=== PATIENT | male | born 1985 | race Caucasian/White ===

== ENCOUNTER 2019-09-10 21:52 | Emergency (ER) | payer OTHER ==
[~2019-09-10] VITALS: Ht 175.3 cm; Wt 89.0 kg
[2019-09-10 21:55] VITALS: BP 115/74
--- NOTE | 2019-09-10 22:30 | RAD ---
ANKLE RIGHT 3V History: Ankle pain. Technique: 3 views right ankle. Comparison: None. Findings: Acute mildly displaced oblique right distal fibular fracture. Lateral ankle soft tissue swelling. Nondisplaced posterior malleolus fracture. Symmetric ankle mortise. Impression: 1. Acute oblique mildly displaced right distal fibular fracture. 2. Acute nondisplaced posterior malleolus fracture. Electronically signed by: Reese Hernandes DO (09/10/2019 10:27 PM) LESLIE
[2019-09-10] MEDS ORDERED: HYDR-3165 PO (22:54)
--- NOTE | 2019-09-10 22:55 | PHYS DOC ---
Past History Past Medical History: No Pertinent History Past Surgical History: Tonsillectomy, Other Additional Past Surgical Histo: mass removal right lung with chest tube Alcohol Use: Occasionally General Adult EDM: Chief Complaint: ANKLE PROBLEM HPI: HPI: 34-year-old male presents with right ankle pain. The patient was walking on what he believes was flat ground. As he was walking he heard a snap in his right ankle and had immediate pain. He is unable to bear weight on that ankle since that time. He denies falling. He does not remember rolling the ankle. He denies any other injuries. Review of Systems: Review of Systems: Constitutional: Denies fever or chills Eyes: Denies change in visual acuity HENT: Denies nasal congestion or sore throat Respiratory: Denies cough or shortness of breath Cardiovascular: Denies chest pain or edema GI: Denies abdominal pain, nausea, vomiting, bloody stools or diarrhea : Denies dysuria Musculoskeletal: Right ankle pain Integument: Denies rash Neurologic: Denies headache, focal weakness or sensory changes Endocrine: Denies polyuria or polydipsia Lymphatic: Denies swollen glands Psychiatric: Denies depression or anxiety Heart Score: Risk Factors: Risk Factors: DM, Current or recent (<one month) smoker, HTN, HLP, family history of CAD, obesity. Risk Scores: Score 0 - 3: 2.5% MACE over next 6 weeks - Discharge Home Score 4 - 6: 20.3% MACE over next 6 weeks - Admit for Clinical Observation Score 7 - 10: 72.7% MACE over next 6 weeks - Early Invasive Strategies Allergies: Allergies: Allergies Coded Allergies Type Severity Reaction Last Updated Verified oxycodone Allergy Intermediate 5/20/20 Yes Physical Exam: PE: Constitutional: Well developed, well nourished, no acute distress, non-toxic appearance. [] HENT: Normocephalic, atraumatic, bilateral external ears normal, oropharynx mo ist, no oral exudates, nose normal. [] Eyes: PERRLA, EOMI, conjunctiva normal, no discharge. [] Neck: Normal range of motion, no tenderness, supple, no stridor. [] Cardiovascular:Heart rate regular rhythm, no murmur [] Lungs & Thorax: Bilateral breath sounds clear to auscultation [] Abdomen: Bowel sounds normal, soft, no tenderness, no masses, no pulsatile masses. [] Skin: Warm, dry, no erythema, no rash. [] Back: No tenderness, no CVA tenderness. [] Extremities: Tenderness over the lateral and posterior right ankle, swelling, no ecchymosis or obvious deformity. [] Neurologic: Alert and oriented X 3, normal motor function, normal sensory function, no focal deficits noted. [] Psychologic: Affect normal, judgement normal, mood normal. [] Current Patient Data: Vital Signs: Vital Signs Date Time Temp Pulse Resp B/P (MAP) Pulse Ox O2 Delivery O2 Flow Rate FiO2 09/10/19 21:55 98.6 97 18 115/74 (88) 95 Room Air EKG: EKG: [] Radiology/Procedures: Radiology/Procedures: [] Impressions: ANKLE RIGHT 3V History: Ankle pain. Technique: 3 views right ankle. Comparison: None. Findings: Acute mildly displaced oblique right distal fibular fracture. Lateral ankle soft tissue swelling. Nondisplaced posterior malleolus fracture. Symmetric ankle mortise. Impression: 1. Acute oblique mildly displaced right distal fibular fracture. 2. Acute nondisplaced posterior malleolus fracture. Electronically signed by: Stas Starkey DO (09/10/2019 10:27 PM) [facility] DICTATED AND SIGNED BY: STAS STARKEY DO DATE: 09/10/192226 CC: CARLY SWANN DO; ANETA ALEXANDER DO ~ Course & Med Decision Making: Course & Med Decision Making Pertinent Labs and Imaging studies reviewed. (See chart for details) The patient has a bimalleolar fracture. See official read for more details. We will place the patient in a posterior Ortho-Glass splint. He will follow-up with orthopedics tomorrow. He is stable for discharge at this time. I will discharge him with a course of [place] . [] Dragon Disclaimer: Dragon Disclaimer: This electronic medical record was generated, in whole or in part, using a voice recognition dictation system. Departure Departure: Impression: Primary Impression: Bimalleolar fracture of right ankle Qualified Codes: S82.841A - Displaced bimalleolar fracture of right lower leg, initial encounter for closed fracture Disposition: 01 HOME/RESIDENCE PRIOR TO ADM Condition: STABLE Referrals: CARLY SWANN DO (PCP) Patient Instructions: Ankle Fracture, [id number] Scripts Hydrocodone Bit/Acetaminophen (NORCO 5-325 TABLET) 1 Each Tablet 1 TAB PO PRN Q6HRS PRN for PAIN, #14 TAB 0 Refills Prov: ANETA ALEXANDER DO 09/10/19 ANETA ALEXANDER DO September 10, 2019 22:55
[2019-09-10] MEDS ORDERED: HYDROcodone/APAP 7.5/325MG 1 TAB TABLET PO ONE (23:15)
== END 2019-09-10 23:25 | disposition home or self-care (01) ==
LOC: ER 21:52
DX: S82.841A Displaced bimalleolar fracture of right lower leg, initial encounter for closed fracture (principal); Z88.5 Allergy status to narcotic agent; X50.9XXA Other and unspecified overexertion or strenuous movements or postures, initial encounter; Y93.01 Activity, walking, marching and hiking; Y92.89 Other specified places as the place of occurrence of the external cause; Y99.8 Other external cause status
CPT/HCPCS: 29515; 73610; 99283

== ENCOUNTER → 2019-10-30 | Outpatient (CLI) | payer OTHER ==
[~2019-10-30] MED LIST: HYDR-3165 PO
--- NOTE | 2019-10-30 10:43 | RAD ---
EXAM: Right ankle 3 views. HISTORY: Fracture follow-up. COMPARISON: 09/10/2019 FINDINGS: Three views of the right ankle are obtained. There are changes of internal fixation of a right distal fibular fracture with a lateral plate fixed by screws and an interfragmentary screw. Alignment is near-anatomic. No the fracture line is less detectable consistent with early healing. Clear healing changes are yet detectable. There is mild overlying soft tissue swelling. The previously noted posterior malleolar fracture is not well seen in these projections. The joint spaces and alignment of the mortise are maintained. IMPRESSION: 1. Internal fixation of a right distal fibular fracture in expected alignment. 2. The previously noted posterior malleolar fracture is not well seen in these projections. Electronically signed by: Raghav Carrasco MD (10/30/2019 10:40 AM) [id number]
== END ==
LOC: DXRAD 10:03
PROVIDERS: ATTEND Orthopaedic Surgery
DX: S82.401D Unspecified fracture of shaft of right fibula, subsequent encounter for closed fracture with routine healing (principal); S82.201D Unspecified fracture of shaft of right tibia, subsequent encounter for closed fracture with routine healing; X58.XXXD Exposure to other specified factors, subsequent encounter; Z87.81 Personal history of (healed) traumatic fracture; Z98.890 Other specified postprocedural states
CPT/HCPCS: 73610

== ENCOUNTER → 2019-11-12 | Outpatient (CLI) | payer OTHER ==
--- NOTE | 2019-11-12 10:57 | RAD ---
EXAM: Right ankle 3 views. HISTORY: Fracture follow-up COMPARISON: 10/30/2019 FINDINGS: Three views of the right ankle are obtained. There are changes of internal fixation of a right distal fibular fracture with a lateral plate and screws and an interfragmentary screw. Alignment is near-anatomic. The fracture line is now indistinct, consistent with healing changes. A posterior malleolar fracture fragment also appears partially healed in expected alignment. A density projecting over the anterior joint space on the lateral projection measures 6 x 2 mm and may be an artifact or a loose body. The joint spaces and alignment of the mortise are maintained. IMPRESSION: 1. Healing internally fixed distal fibular fracture in expected alignment. 2. Healing posterior malleolar fracture in expected alignment. 3. 6 x 2 mm loose body within the anterior joint space versus an artifact. Electronically signed by: Raghav Carrasco MD (11/12/2019 10:54 AM) [id number]
== END ==
LOC: DXRAD 08:59
PROVIDERS: ATTEND Physician Assistant
DX: S82.491D Other fracture of shaft of right fibula, subsequent encounter for closed fracture with routine healing (principal); S82.891D Other fracture of right lower leg, subsequent encounter for closed fracture with routine healing; X58.XXXD Exposure to other specified factors, subsequent encounter; Z98.890 Other specified postprocedural states; Z87.81 Personal history of (healed) traumatic fracture
CPT/HCPCS: 73610

== ENCOUNTER 2021-04-21 11:08 | Emergency (ER) | payer OTHER ==
[~2021-04-21] VITALS: Ht 175.3 cm; Wt 89.0 kg
[2021-04-21 11:21] VITALS: BP 115/74
--- NOTE | 2021-04-21 11:32 | PHYS DOC ---
Past History Past Medical History: No Pertinent History Past Surgical History: Tonsillectomy, Other Additional Past Surgical Histo: mass removal right lung with chest tube Alcohol Use: Occasionally Adult General Chief Complaint Chief Complaint: BACK PAIN - NO INJURY HPI HPI Patient is a 36-year-old male patient presenting to the ED today with multiple complaints. Patient states on Sunday he developed mild intermittent low back pain as well as nasal congestion, sore throat and a cough. He states since last night when he coughs he has pain on his left lower ribs and now has body aches. Patient denies any injuries. Denies any pain radiating to bilateral lower extremities. Denies any loss of bowel/bladder function. Review of Systems Review of Systems Constitutional: Reports body aches denies fever or chills [] Eyes: Denies change in visual acuity, redness, or eye pain [] HENT: Reports nasal congestion and sore throat [] Respiratory: Denies cough or shortness of breath [] Cardiovascular: No additional information not addressed in HPI [] GI: Denies abdominal pain, nausea, vomiting, bloody stools or diarrhea [] : Denies dysuria or hematuria [] Musculoskeletal: Reports low back pain Integument: Denies rash or skin lesions [] Neurologic: Denies headache, focal weakness or sensory changes [] All other systems were reviewed and found to be within normal limits, except as documented in this note. Allergies Allergies Allergies Coded Allergies Type Severity Reaction Last Updated Verified oxycodone Allergy Intermediate 520/20 Yes Physical Exam Physical Exam Constitutional: Well developed, well nourished, no acute distress, non-toxic appearance. [] HENT: Normocephalic, atraumatic, bilateral external ears normal, oropharynx moist, no oral exudates, nose normal. [] Eyes: PERRLA, EOMI, conjunctiva normal, no discharge. [] Neck: Normal range of motion, no tenderness, supple, no stridor. [] Cardiovascular:Heart rate regular rhythm, no murmur [] Lungs & Thorax: Bilateral breath sounds clear to auscultation [] Abdomen: Bowel sounds normal, soft, no tenderness, no masses, no pulsatile masses. [] Skin: Warm, dry, no erythema, no rash. [] Back: No tenderness, no CVA tenderness. [] Extremities: No tenderness, no cyanosis, no clubbing, ROM intact, no edema. [] Neurologic: Alert and oriented X 3, normal motor function, normal sensory function, no focal deficits noted. [] Psychologic: Affect normal, judgement normal, mood normal. [] Current Patient Data Vital Signs Vital Signs Date Time Temp Pulse Resp B/P (MAP) Pulse Ox O2 Delivery O2 Flow Rate FiO2 04/21/21 11:21 98.2 88 16 115/74 (88) 99 Room Air EKG EKG [] Radiology/Procedures Radiology/Procedures []PROCEDURE: CHEST AP ONLY EXAM: Chest, single view. HISTORY: Cough. Rib pain. COMPARISON: None. FINDINGS: A frontal view of the chest is obtained. There is no infiltrate, pleural effusion or pneumothorax. The heart is normal in size. IMPRESSION: No acute pulmonary finding. Electronically signed by: Lydia Jon MD (04/21/2021 12:11 PM) [id number] DICTATED AND SIGNED BY: LYDIA JON MD DATE: 04/21/21 1211 CC: CARLY SWANN DO; [employer] ~MTH0 0 Heart Score C/O Chest Pain: N/A Risk Factors: Risk Factors: DM, Current or recent (<one month) smoker, HTN, HLP, family history of CAD, obesity. Risk Scores: Risk Factors: DM, Current or recent (<one month) smoker, HTN, HLP, family history of CAD, obesity. Course & Med Decision Making Course & Med Decision Making Pertinent Labs and Imaging studies reviewed. (See chart for details) This a 36-year-old male patient presented to the ED today with multiple complaints including low back pain, body aches, chills, nasal congestion, sore throat, and left rib pain when coughing, symptoms since Sunday. Negative influenza a and B. Chest x-ray interpreted by radiologist as negative for any acute findings. Positive rapid Covid test. Discharge to home. Quarantine measures recommended. Follow-up with primary care doctor in 1 week Álvaro Disclaimer Dragon Disclaimer This electronic medical record was generated, in whole or in part, using a voice recognition dictation system. Departure Departure: Impression: Primary Impression: Lab test positive for detection of COVID-19 virus Additional Impressions: URI (upper respiratory infection) Cough Backache Disposition: 01 HOME / SELF CARE / HOMELESS Condition: STABLE Referrals: CARLY SWANN DO (PCP) follow up with your doctor in one week Patient Instructions: Cough, Adult, [id number], Viral Infections Additional Instructions: You are positive for COVID-19. Please quarantine yourself for 10 days. Maintain good COVID19. Push fluids. Take Tylenol or Motrin for pain or fever c ome back to the ED at any point symptoms worsen. Problem Qualifiers Additional Impressions: URI (upper respiratory infection) URI type: unspecified URI Qualified Codes: J06.9 - Acute upper respiratory infection, unspecified Backache Back pain location: low back pain Chronicity: acute Back pain laterality: bilateral Sciatica presence: without sciatica Qualified Codes: M54.50 - Low back pain, unspecified [employer] Apr 21, 2021 11:32
[2021-04-21 12:10] LABS: INFLUENZA A PATIENT NEGATIVE (NEGATIVE); INFLUENZA B PATIENT NEGATIVE (NEGATIVE)
--- NOTE | 2021-04-21 12:13 | RAD ---
EXAM: Chest, single view. HISTORY: Cough. Rib pain. COMPARISON: None. FINDINGS: A frontal view of the chest is obtained. There is no infiltrate, pleural effusion or pneumo thorax. The heart is normal in size. IMPRESSION: No acute pulmonary finding. Electronically signed by: Lydia Jon MD (04/21/2021 12:11 PM) [id number]
== END 2021-04-21 12:33 | disposition home or self-care (01) ==
LOC: ER 11:08
DX: U07.1 COVID-19 (principal); J06.9 Acute upper respiratory infection, unspecified; Z88.5 Allergy status to narcotic agent
CPT/HCPCS: 71045; 87426; 87804; 99284

== ENCOUNTER 2021-06-08 15:01 | Emergency (ER) | payer OTHER ==
[~2021-06-08] VITALS: Ht 175.3 cm; Wt 93.0 kg
[2021-06-08 15:50] VITALS: BP 141/89
[2021-06-08 16:16] LABS: BASO % 1 % (0-3); EOS # 0.1 x10^3/uL (0.0-0.7); EOS % 1 % (0-3); HEMATOCRIT 46.5 % (39.0-53.0); HEMOGLOBIN 15.9 g/dL (13.0-17.5); LYMPH % 16 % (24-48); MEAN CORPUSCULAR HEMOGLOBIN 31 pg (25-35); MEAN CORPUSCULAR HGB CONC 34 g/dL (31-37); MEAN CORPUSCULAR VOLUME 91 fL (79-100); MONO # 0.8 x10^3/uL (0.0-1.1); MONO % 12 % (0-9); NEUT # 4.6 x10^3uL (1.8-7.7); NEUT % 70 % (31-73); PLATELET COUNT 252 x10^3/uL (140-400); RED BLOOD COUNT 5.09 x10^6/uL (4.30-5.70); RED CELL DISTRIBUTION WIDTH 13.6 % (11.5-14.5); WHITE BLOOD COUNT 6.6 x10^3/uL (4.0-11.0)
--- NOTE | 2021-06-08 16:16 | RAD ---
Single AP view of the chest. Comparison: 04/21/2021. Indication: Chest pain since Covid in late March Findings: The heart is not enlarged. There is no pneumothorax or effusion. No air space or interstitial diseas e. Impression: 1. No acute cardiopulmonary process. Electronically signed by: Edilson Cameron MD (06/08/2021 4:13 PM) [facility]
[2021-06-08 16:21] LABS: CALCIUM 8.9 mg/dL (8.5-10.1); CREATININE 1.1 mg/dL (0.7-1.3); GFR 75.7; POTASSIUM 4.3 mmol/L (3.5-5.1)
--- NOTE | 2021-06-08 16:21 | PHYS DOC ---
Past History Past Medical History: No Pertinent History Additional Past Medical Histor: neuropathy, chest masses Past Surgical History: Tonsillectomy, Other Additional Past Surgical Histo: mass removal right lung with chest tube, r ankle x3 Alcohol Use: Occasionally General Adult EDM: Chief Complaint: CHEST WALL PAIN HPI: HPI: 36-year-old male presents with chest wall pain. Patient states bilateral chest wall pain but worse on the right. He has had this pain since testing positive for COVID-19 in March. He states that the pain seems to be getting worse. Now disrupts his sleep. Movement of his trunk is painful. Deep breathing is painful. He tried to get an appointment at [facility] and they could not see him so he came to the emergency room. Patient does have shortness of breath with activity. Denies fever or chills. Review of Systems: Review of Systems: Constitutional: Denies fever or chills Eyes: Denies change in visual acuity HENT: Denies nasal congestion or sore throat Respiratory: shortness of breath Cardiovascular: Chest pain GI: Denies abdominal pain, nausea, vomiting, bloody stools or diarrhea : Denies dysuria Musculoskeletal: Denies back pain or joint pain Integument: Denies rash Neurologic: Denies headache, focal weakness or sensory changes Endocrine: Denies polyuria or polydipsia Lymphatic: Denies swollen glands Psychiatric: Denies depression or anxiety Allergies: Allergies: Allergies Coded Allergies Type Severity Reaction Last Updated Verified oxycodone Allergy Intermediate 520/20 Yes Physical Exam: PE: Constitutional: Well developed, well nourished, no acute distress, non-toxic appearance. [] HENT: Normocephalic, atraumatic, bilateral external ears normal, oropharynx moist, no oral exudates, nose normal. [] Eyes: PERRLA, EOMI, conjunctiva normal, no discharge. [] Neck: Normal range of motion, no tenderness, supple, no stridor. [] Cardiovascular: Heart rate 75, regular rhythm, no murmur [] Lungs & Thorax: Bilateral breath sounds clear to auscultation [] Abdomen: Bowel sounds normal, soft, no tenderness, no masses, no pulsatile masses. [] Skin: Warm, dry, no erythema, no rash. [] Back: No tenderness, no CVA tenderness. [] Extremities: No tenderness, no cyanosis, no clubbing, ROM intact, no edema. [] Neurologic: Alert and oriented X 3, normal motor function, normal sensory function, no focal deficits noted. [] Psychologic: Affect normal, judgement normal, mood normal. [] Current Patient Data: Vital Signs: Vital Signs Date Time Temp Pulse Resp B/P (MAP) Pulse Ox O2 Delivery O2 Flow Rate FiO2 06/08/21 15:50 97.9 71 18 141/89 (106) 99 Room Air EKG: EKG: Sinus rhythm, rate 75, normal axis, no ST elevation or depression. [] Radiology/Procedures: Radiology/Procedures: [] Impressions: Single AP view of the chest. Comparison: 04/21/2021. Indication: Chest pain since Covid in late March Findings: The heart is not enlarged. There is no pneumothorax or effusion. No air space or interstitial disease. Impression: 1. No acute cardiopulmonary process. Electronically signed by: Johny Atwood MD (06/08/2021 4:13 PM) [facility] DICTATED AND SIGNED BY: JOHNY ATWOOD MD DATE: 06/08/21 1611 CC: CARLY SWANN DO; ANETA ALEXANDER DO ~MTH0 0 Heart Score: C/O Chest Pain: Yes HEART Score for Chest Pain: HEART Score for Chest Pain Response (Comments) Value History Slighlty/Non-Suspicious 0 ECG Normal 0 Age < 45 0 Risk Factors 1 or 2 Risk Factors 1 Troponin < Normal Limit 0 Total 1 Risk Factors: Risk Factors: DM, Current or recent (<one month) smoker, HTN, HLP, family history of CAD, obesity. Risk Scores: Score 0 - 3: 2.5% MACE over next 6 weeks - Discharge Home Score 4 - 6: 20.3% MACE over next 6 weeks - Admit for Clinical Observation Score 7 - 10: 72.7% MACE over next 6 weeks - Early Invasive Strategies Course & Med Decision Making: Course & Med Decision Making Pertinent Labs and Imaging studies reviewed. (See chart for details) The patient is EKG is negative for acute findings. Labs are unremarkable. Troponin is negative. Chest x-ray is unremarkable. This could be long COVID symptoms or musculoskeletal cause. Dragon Disclaimer: Dragon Disclaimer: This electronic medical record was generated, in whole or in part, using a voice recognition dictation system. Departure Departure: Impression: Primary Impression: Chest wall pain Disposition: HOME / SELF CARE / HOMELESS Condition: STABLE Referrals: CARLY SWANN DO (PCP) Patient Instructions: Chest Wall Pain, [id number] ANETA ALEXANDER DO Jun 08, 2021 16:21
--- NOTE | 2021-06-08 16:26 | EKG ---
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
[2021-06-08 16:27] LABS: ALBUMIN 3.7 g/dL (3.4-5.0); ALBUMIN/GLOBULIN RATIO 1.1 (1.0-1.7); TOTAL BILIRUBIN 0.6 mg/dL (0.2-1.0); TOTAL PROTEIN 7.2 g/dL (6.4-8.2)
== END 2021-06-08 17:06 | disposition home or self-care (01) ==
LOC: ER 15:01
DX: R07.89 Other chest pain (principal); R06.02 Shortness of breath; Z88.5 Allergy status to narcotic agent
CPT/HCPCS: 36415; 71045; 80053; 84484; 85025; 93005; 99285

== ENCOUNTER 2021-08-12 20:13 | Emergency (ER) | payer OTHER ==
[~2021-08-12] VITALS: Ht 175.3 cm; Wt 82.3 kg
--- NOTE | 2021-08-12 20:40 | PHYS DOC ---
Past History Past Medical History: No Pertinent History Additional Past Medical Histor: neuropathy, chest masses Past Medical History COVID in Feb and Mar 2021 hx. spontaneous pneumothorax Rt Past Surgical History: Tonsillectomy, Other Additional Past Surgical Histo: mass removal right lung with chest tube, r ankle x3 Alcohol Use: Occasionally General Adult EDM: Chief Complaint: SHORTNESS OF BREATH HPI: HPI: ".. I ve been so short of breath.. coughing all the time... I had Covid in Feb. and Mar. ... I ve got some chest pain from all the coughing... " I got better but I am sick again the past week.." Patient is a 36 year old male who presents with above hx and complaints of chest wall pain, dyspnea . Chest wall pain on right is exacerbated by the frequent episodes of coughing. Patient did have COVID in February and March. Has not completely recovered to his baseline from the COVID infection. Patient did co mplete COVID vaccination. Has completed flu vaccination. No recent travel. No specific ill contacts. Normally healthy. Pt. normally follows at [facility] with Dr. Brown. No history of coagulopathy with him or family members. Review of Systems: Review of Systems: Constitutional: Subjective he complains of fever or chills Eyes: Denies change in visual acuity HENT: Denies nasal congestion or sore throat Respiratory: History of persistent cough, shortness of breath and chest wall pain Cardiovascular: Denies chest pain or edema GI: Denies abdominal pain, nausea, vomiting, bloody stools or diarrhea : Denies dysuria Musculoskeletal: Denies back pain or joint pain Integument: Denies rash Neurologic: Denies headache, focal weakness or sensory changes Endocrine: Denies polyuria or polydipsia Lymphatic: Denies swollen glands Psychiatric: Denies depression or anxiety Family History: Family History: Noncontributory to presentation Current Medications: Current Meds: See nursing for home meds Allergies: Allergies: Allergies Coded Allergies Type Severity Reaction Last Updated Verified oxycodone Allergy Intermediate 5/20/20 Yes Physical Exam: PE: Constitutional: Well developed, well nourished, moderate acute distress, non- toxic appearance. [] HENT: Normocephalic, atraumatic, bilateral external ears normal, oropharynx moist, no oral exudates, nose rhinorrhea swollen turbinates. Eyes: PERRLA, EOMI, conjunctiva normal, no discharge. [] Neck: Normal range of motion, no tenderness, supple, no stridor. [] Cardiovascular:Heart rate regular rhythm, no murmur [] Lungs & Thorax: Bilateral breath sounds equal apex with scattered wheezes, some rhonchi over right chest on auscultation [] has chest wall tenderness to deep breaths and cough. Has persistent coughing exacerbations. Abdomen: Bowel sounds normal, soft, no tenderness, no masses, no pulsatile masses. [] Skin: Warm, dry, no erythema, no rash. [] Back: No tenderness, no CVA tenderness. [] Extremities: No tenderness, no cyanosis, no clubbing, ROM intact, no edema. No cording appreciated. Neurologic: Alert and oriented X 3, normal motor function, normal sensory function, no focal deficits noted. [] Psychologic: Affect normal, judgement normal, mood normal. [] EKG: EKG: My interpretation of EKG shows a sinus rhythm at 76 bpm. There is some contour abnormalities in anterior lateral leads. But no findings of acute STEMI of contralateral changes. Time EKG is 2101 hrs. [] Radiology/Procedures: Radiology/Procedures: ([address] [id number] IMAGING REPORT Signed PAT[facility]: [facility] [id number] : 1985 LOCATION: ER AGE: 36 SEX: M EXAM STATUS: REG ER ORD. PHYSICIAN: DAVID BARRY MD REASON: chest pain PROCEDURE: CHEST AP ONLY INDICATION: Reason: chest pain / Spl. Instructions: / History: COMPARISON: June 08, 2021 FINDINGS: Single view of chest obtained. Hypoexpanded exam with mild interstitial and groundglass opacity. Cardiac silhouette unremarkable Nodularity at the pulmonary lavern bilaterally again seen and could be vessel seen on end or from causes such as chronic granulomatous disease IMPRESSION: * Mild interstitial and groundglass opacity. Could be secondary to mild pulmonary vascular congestion or interstitial infiltrate. Electronically signed by: Mary Rodriguez MD (08/12/2021 10:08 PM) [employer]- [id number] DICTATED AND SIGNED BY: MARY RODRIGUEZ MD DATE: 08/12/212206 CC: CARLY BROWN DO; DAVID BARRY MD ~ 549) [phone] IMAGING REPORT Signed PATIENT: YAMILETH GALLARDOOUNT: [id number] : 1985 LOCATION: ER AGE: 36 SEX: M EXAM STATUS: REG ER ORD. PHYSICIAN: DAVID BARRY MD REASON: OMNI 350,100ML IV.PLEURITIC CP.HX RIGHT LUNG PNEUMOTHORAX PROCEDURE: CT ANGIOGRAPHY CHEST EXAMINATION: CTA Chest With IV contrast INDICATION:36 years, Male, pleuritic chest pain, history of right pneumothorax. Evaluate for pulmonary embolism COMPARISON: None. TECHNIQUE: Spiral CTA was obtained from the jugular notch through the posterior costophrenic recess. 3-D MIPS, sagittal and coronal reformats were obtained. Exposure: One or more of the following individualized dose reduction techniques were utilized for this examination: 1. Automated exposure control 2. Adjustment of the mA and/or kV according to patient size 3. Use of iterative reconstruction technique. FINDINGS: LUNGS/PLEURA: Central airways are patent. Dependent subsegmental atelectasis in bibasilar lungs. No focal consolidation, pleural effusion or pneumothorax. Few scattered bilateral 2-3 mm solid pulmonary nodules, for example may nodules in the left lower lobe series 4 image 89. Scattered calcified granulomas in the ri ght lung. MEDIASTINUM: No pathologic mediastinal or hilar adenopathy. Calcified bilateral hilar lymph nodes. The thoracic aorta and pulmonary arteries are normal in caliber. No evidence of pulmonary embolism. The heart is normal in size. No pericardial effusion. No detectable calcified coronary atherosclerosis. The visualized thyroid and the esophagus are unremarkable. AXILLA/SOFT TISSUE: No supraclavicular or axillary adenopathy. Regional soft tissues are within normal limits. UPPER ABDOMEN: The visualized upper abdomen appears unremarkable. BONES: No evidence of acute fractures or aggressive osseous lesions. IMPRESSION: 1. No evidence of pulmonary embolism. 2. No pneumothorax. 3. Few scattered bilateral 2-3 mm solid pulmonary nodules. Fleischner Society guidelines for management of incidental pulmonary nodule (Radiology 2017): Multiple solid nodules < 6 mm: LOW-RISK patient (minimal or absent history of smoking and other known risk factors): No routine follow-up HIGH-RISK patient (history of smoking or other known risk factors): Optional CT at 12 months. Electronically signed by: Andrei Young MD (08/12/2021 10:56 PM) [facility] DICTATED AND SIGNED BY: ANDREI YOUNG MD DATE: 08/12/212250 CC: CARLY [facility] DO; DAVID BARRY MD ~ My interpretation [] Heart Score: C/O Chest Pain: Yes HEART Score for Chest Pain: HEART Score for Chest Pain Response (Comments) Value History Slighlty/Non-Suspicious 0 ECG Normal 0 Age < 45 0 Risk Factors No Risk Factors 0 Troponin < Normal Limit 0 Total 0 Risk Factors: Risk Factors: DM, Current or recent (<one month) smoker, HTN, HLP, family history of CAD, obesity. Risk Scores: Score 0 - 3: 2.5% MACE over next 6 weeks - Discharge Home Score 4 - 6: 20.3% MACE over next 6 weeks - Admit for Clinical Observation Score 7 - 10: 72.7% MACE over next 6 weeks - Early Invasive Strategies Course & Med Decision Making: Course & Med Decision Making Pertinent Labs and Imaging studies reviewed. (See chart for details) Patient continue MDI 2 puffs 4 times a day. Follow-up primary care. Take Tylenol and ibuprofen for discomfort. For severe cough you may try Benadryl 25 to 50 mg 4 times a day. Pt. to self isolate until asymptomatic. Follow at [facility]. Impression: 1. Chest Wall Pain 2. Viral Syndrome 3. + Influenza A. 4. Scattered Pulmonary nodule [] Dragon Disclaimer: Álvaro Disclaimer: This electronic medical record was generated, in whole or in part, using a voice recognition dictation system. Departure Departure: Referrals: CARLY BROWN DO (PCP) Asifon Disclaimer This chart was dictated in whole or in part using Voice Recognition software in a busy, high-work load, and often noisy Emergency Department environment. It may contain unintended and wholly unrecognized errors or omissions. DAVID BARRY MD Aug 12, 2021 20:40
[2021-08-12] MEDS: IV RINGERS SOLUTION,LACTATED 1,000 ML IV SCH (21:30)
[2021-08-12 21:46] LABS: BASO % 1 % (0-3); EOS % 0 % (0-3); HEMOGLOBIN 15.9 g/dL (13.0-17.5); LYMPH # 1.1 x10^3/uL (1.0-4.8); LYMPH % 18 % (24-48); MEAN CORPUSCULAR HEMOGLOBIN 31 pg (25-35); MEAN CORPUSCULAR HGB CONC 34 g/dL (31-37); MEAN CORPUSCULAR VOLUME 92 fL (79-100); MONO # 0.7 x10^3/uL (0.0-1.1); MONO % 12 % (0-9); NEUT # 4.5 x10^3uL (1.8-7.7); NEUT % 70 % (31-73); PLATELET COUNT 248 x10^3/uL (140-400); RED BLOOD COUNT 5.13 x10^6/uL (4.30-5.70); RED CELL DISTRIBUTION WIDTH 13.3 % (11.5-14.5); WHITE BLOOD COUNT 6.4 x10^3/uL (4.0-11.0)
[2021-08-12 21:51] LABS: CALCIUM 9.1 mg/dL (8.5-10.1); CREATININE 1.1 mg/dL (0.7-1.3); GFR 75.7; POTASSIUM 4.5 mmol/L (3.5-5.1)
[2021-08-12 22:01] LABS: ALBUMIN 3.7 g/dL (3.4-5.0); DIRECT BILIRUBIN 0.1 mg/dL (0.0-0.2); MAGNESIUM 2.1 mg/dL (1.8-2.4); TOTAL BILIRUBIN 0.3 mg/dL (0.2-1.0); TOTAL PROTEIN 7.1 g/dL (6.4-8.2)
[2021-08-12] MEDS ORDERED: ALBUTEROL SULFATE 8GM INHALER. ONE (22:02)
[2021-08-12] MEDS: ALBUTEROL SULFATE 8GM INHALER. INH ONE (22:08)
--- NOTE | 2021-08-12 22:11 | RAD ---
INDICATION: Reason: chest pain / Spl. Instructions: / History: COMPARISON: June 08, 2021 FINDINGS: Single view of chest obtained. Hypoexpanded exam with mild interstitial and groundglass opacity. Cardiac silhouette unremarkable Nodularity at the pulmonary lavern bilaterally again seen and could be vessel seen on end or from cause s such as chronic granulomatous disease IMPRESSION: * Mild interstitial and groundglass opacity. Could be secondary to mild pulmonary vascular congestio n or interstitial infiltrate. Electronically signed by: Marcel Garland MD (08/12/2021 10:08 PM) [id number]
[2021-08-12] MEDS: IOHEXOL 350 MG/ML 100 ML VIAL. IV ONE (22:29)
[2021-08-12 22:38] LABS: INFLUENZA A PATIENT POSITIVE (NEGATIVE); INFLUENZA B PATIENT NEGATIVE (NEGATIVE)
--- NOTE | 2021-08-12 22:58 | RAD ---
EXAMINATION: CTA Chest With IV contrast INDICATION:36 years, Male, pleuritic chest pain, history of right pneumothorax. Evaluate for pulmonar y embolism COMPARISON: None. TECHNIQUE: Spiral CTA was obtained from the jugular notch through the posterior costophrenic recess. 3-D MIPS, sagittal and coronal reformats were obtained. Exposure: One or more of the following individualized dose reduction techniques were utilized for thi s examination: 1. Automated exposure control 2. Adjustment of the mA and/or kV according to patient size 3. Use of iterative reconstruction technique. FINDINGS: LUNGS/PLEURA: Central airways are patent. Dependent subsegmental atelectasis in bibasilar lungs. No f ocal consolidation, pleural effusion or pneumothorax. Few scattered bilateral 2-3 mm solid pulmonary nodules, for example may nodules in the left lower lobe series 4 image 89. Scattered calcified granul omas in the right lung. MEDIASTINUM: No pathologic mediastinal or hilar adenopathy. Calcified bilateral hilar lymph nodes. Th e thoracic aorta and pulmonary arteries are normal in caliber. No evidence of pulmonary embolism. The heart is normal in size. No pericardial effusion. No detectable calcified coronary atherosclerosis. The visualized thyroid and the esophagus are unremarkable. AXILLA/SOFT TISSUE: No supraclavicular or axillary adenopathy. Regional soft tissues are within tanmay l limits. UPPER ABDOMEN: The visualized upper abdomen appears unremarkable. BONES: No evidence of acute fractures or aggressive osseous lesions. IMPRESSION: 1. No evidence of pulmonary embolism. 2. No pneumothorax. 3. Few scattered bilateral 2-3 mm solid pulmonary nodules. Fleischner Society guidelines for management of incidental pulmonary nodule (Radiology 2017): Multipl e solid nodules < 6 mm: LOW-RISK patient (minimal or absent history of smoking and other known risk factors): No routine foll ow-up HIGH-RISK patient (history of smoking or other known risk factors): Optional CT at 12 months. Electronically signed by: Eris Young MD (08/12/2021 10:56 PM) [facility]
[2021-08-13 00:07] VITALS: BP 133/79
--- NOTE | 2021-08-13 00:21 | EKG ---
[address] [address] Test Date: 2021-08-12 Test Time: 21:01:39 Pat Name: YAMILETH GALLARDO Department: Room: Gender: M [employer]: : 1985 Requested By: DAVID BARRY Order Number: [id number] Reading MD: Andres Enamorado Measurements Intervals [place] Rate: 76 P: 39 KS: 142 QRS: 13 QRSD: 88 T: 22 QT: 356 QTc: 405 Interpretive Statements SINUS RHYTHM NON SPECIFIC ST-T WAVE CHANGES Electronically Signed On 08-17-2021 17:44:36 CDT by Andres Enamorado
== END 2021-08-13 00:13 | disposition home or self-care (01) ==
LOC: ER 20:13
DX: R07.89 Other chest pain (principal); B34.9 Viral infection, unspecified; J10.1 Influenza due to other identified influenza virus with other respiratory manifestations; R91.1 Solitary pulmonary nodule; Z20.822 Contact with and (suspected) exposure to COVID-19
CPT/HCPCS: 71045; 71275; 80048; 80076; 82550; 83690; 83735; 83880; 84443; 84484; 85025; 85379; 85610; 85730; 87426; 87428; 93005; 94640; 96360; 99285; J7120; Q9967; 94664